=== PATIENT | male | born 1970 | race Two or more races ===

== ENCOUNTER 2022-07-29 13:13 | Inpatient (IN) | payer BC, OTHER ==
[~2022-07-29] VITALS: Ht 195.6 cm; Wt 128.1 kg
[2022-07-29 14:25] LABS: Basophils # (auto) 0 10 ^3/uL (0-0.2); Basophils % (auto) 0.2 % (0.0-2.0); Eosinophils # (auto) 0.2 10 ^3/uL (0-0.8); Eosinophils % (auto) 1.9 % (0.0-7.0); Hematocrit 38.4 % (41.0-53.0); Hemoglobin 13.2 g/dL (13.5-17.5); Lymphocytes # (auto) 1.7 10 ^3/uL (0.4-5.4); Lymphocytes % (auto) 19.1 % (10.0-50.0); Mean Corpuscular Hemoglobin 30.4 pg (28.0-32.0); Mean Corpuscular Hgb Conc. 34.2 g/dL (32.0-36.0); Mean Corpuscular Volume 88.9 fL (80.0-100.0); Monocytes # (auto) 0.3 10 ^3/uL (0-1.3); Monocytes % (auto) 3.9 % (0.0-12.0); Neutrophils # (auto) 6.6 10 ^3/uL (1.6-8.6); Neutrophils % (auto) 74.9 % (37.0-80.0); Nucleated Red Blood Cells % 0.1 %; Red Blood Cells 4.32 10^6/uL (4.5-5.90); White Blood Cell 8.8 10^3/uL (4.4-10.8)
[2022-07-29 14:40] LABS: Albumin 3.9 g/dL (3.4-5.0); Calcium 9.5 mg/dL (8.5-10.1); Potassium 4.3 mmol/L (3.5-5.1)
[2022-07-29 14:44] LABS: Bilirubin, Total 0.4 mg/dL (0.2-1.0); Total Protein 8.5 g/dL (6.4-8.2)
[2022-07-29] MEDS ORDERED: PIPERACILLIN-TAZOB 3.375GM 100 ML IV ONE (16:15)
[2022-07-29] MEDS ORDERED: SODIUM CHLORIDE 0.9% 1,000 ML IV ONE (16:15)
[2022-07-29] MEDS ORDERED: VANCOMYCIN PER PHARMACY 0 MG IV SCH (16:15)
[2022-07-29] MEDS ORDERED: VANCOMYCIN 1GM/250ML 250 ML IV SCH (18:00)
[2022-07-29] MEDS: SODIUM CHLORIDE 0.9% 1,000 ML IV SCH (22:00)
[2022-07-29] MEDS ORDERED: IBUPROFEN 800 MG TAB PO PRN (22:00)
[2022-07-29] MEDS ORDERED: MORPHINE SULFATE INJ 2 MG/ml SYRG IV PRN ×2 (22:00→23:00)
[2022-07-29] MEDS ORDERED: DOCUSATE SOD 100 MG CAP PO PRN (22:00)
[2022-07-29] MEDS ORDERED: DEXTROSE (50%) 50ML SYRG IV PRN (22:00)
[2022-07-29] MEDS: ACCU-CHEK COMFORT CURVE STRIP VI SCH (22:00)
[2022-07-29] MEDS: InsuLIN REG 1unit/0.01ml Soln (100units/ml) SC SCH (22:00)
[2022-07-29] MEDS ORDERED: ONDANSETRON HCL 4 MG/2 ML VIAL IV PRN (22:00)
[2022-07-29] MEDS ORDERED: NITROGLYCERIN 0.4 MG SL TAB SL PRN (23:00)
[2022-07-30] MEDS: CEFEPIME 1GM/ 50ML 50 ML IV SCH (05:24)
[2022-07-30 05:30] LABS: Basophils # (auto) 0 10 ^3/uL (0-0.2); Basophils % (auto) 0.1 % (0.0-2.0); Eosinophils # (auto) 0.1 10 ^3/uL (0-0.8); Eosinophils % (auto) 0.9 % (0.0-7.0); Hematocrit 36.7 % (41.0-53.0); Hemoglobin 12.5 g/dL (13.5-17.5); Lymphocytes # (auto) 1.3 10 ^3/uL (0.4-5.4); Lymphocytes % (auto) 14.8 % (10.0-50.0); Mean Corpuscular Hemoglobin 30.7 pg (28.0-32.0); Mean Corpuscular Volume 90.2 fL (80.0-100.0); Monocytes # (auto) 0.3 10 ^3/uL (0-1.3); Monocytes % (auto) 3.8 % (0.0-12.0); Neutrophils # (auto) 7.2 10 ^3/uL (1.6-8.6); Neutrophils % (auto) 80.4 % (37.0-80.0); Red Blood Cells 4.06 10^6/uL (4.5-5.90)
[2022-07-30] MEDS: ACCU-CHEK COMFORT CURVE STRIP VI SCH ×4 (05:36→17:00)
[2022-07-30 05:44] LABS: Albumin 3.6 g/dL (3.4-5.0); Calcium 8.7 mg/dL (8.5-10.1)
[2022-07-30] MEDS: INSULIN LANTUS (GLARGINE) 1 /0.01ml (100units/ml) SC SCH (05:44)
[2022-07-30 05:48] LABS: BUN/Creatinine Ratio 18.6 (10.0-20.0); Bilirubin, Total 0.4 mg/dL (0.2-1.0); Total Protein 7.9 g/dL (6.4-8.2)
[2022-07-30] MEDS: InsuLIN REG 1unit/0.01ml Soln (100units/ml) SC SCH ×3 (07:00→19:56)
[2022-07-30] MEDS: HEPARIN SODIUM (PORCINE) 5000 UNITS/ML 1ML VIAL SC SCH ×2 (10:00→16:59)
[2022-07-30] MEDS: VANCOMYCIN 1GM/250ML 250 ML IV SCH (19:32)
[2022-07-30] MEDS: SODIUM CHLORIDE 0.9% 1,000 ML IV SCH (19:32)
[2022-07-30 23:50] VITALS: BP 132/72
[2022-07-31 05:00] VITALS: BP 120/66
[2022-07-31] MEDS: diphenhdrAMINE HCL 25 MG CAP PO PRN ×3 (05:19→21:52)
[2022-07-31] MEDS: InsuLIN REG 1unit/0.01ml Soln (100units/ml) SC SCH ×5 (05:39→22:00)
[2022-07-31] MEDS: ACCU-CHEK COMFORT CURVE STRIP VI SCH ×4 (07:00→21:53)
[2022-07-31] MEDS: INSULIN LANTUS (GLARGINE) 1 /0.01ml (100units/ml) SC SCH ×2 (07:00→22:02)
[2022-07-31] MEDS: SODIUM CHLORIDE 0.9% 1,000 ML IV SCH (07:20)
[2022-07-31] MEDS: VANCOMYCIN 1GM/250ML 250 ML IV SCH ×2 (07:23→17:45)
[2022-07-31] MEDS: HEPARIN SODIUM (PORCINE) 5000 UNITS/ML 1ML VIAL SC SCH ×3 (07:23→21:59)
[2022-07-31] MEDS: CEFEPIME 1GM/ 50ML 50 ML IV SCH ×3 (07:24→21:52)
[2022-07-31 09:00] VITALS: BP 129/57
[2022-07-31 12:53] VITALS: BP 123/63
[2022-07-31] MEDS ORDERED: INSULIN LANTUS (GLARGINE) 1 /0.01ml (100units/ml) SC ONE (15:00)
[2022-07-31 17:00] VITALS: BP 125/77
[2022-07-31 22:00] VITALS: BP 131/75
[2022-08-01 05:00] VITALS: BP 121/69
[2022-08-01] MEDS: diphenhdrAMINE HCL 25 MG CAP PO PRN ×4 (05:51→23:26)
[2022-08-01] MEDS: ACCU-CHEK COMFORT CURVE STRIP VI SCH ×4 (05:52→21:57)
[2022-08-01] MEDS: CEFEPIME 1GM/ 50ML 50 ML IV SCH ×3 (05:52→22:07)
[2022-08-01] MEDS: VANCOMYCIN 1GM/250ML 250 ML IV SCH ×3 (06:54→22:08)
[2022-08-01] MEDS: InsuLIN REG 1unit/0.01ml Soln (100units/ml) SC SCH ×4 (06:56→22:06)
[2022-08-01] MEDS: INSULIN LANTUS (GLARGINE) 1 /0.01ml (100units/ml) SC SCH ×2 (06:56→22:07)
[2022-08-01 08:40] VITALS: BP 138/65
[2022-08-01] MEDS: guaiFENesin-DM 100/10mg/5ml SYR PO PRN (09:11)
[2022-08-01] MEDS: HEPARIN SODIUM (PORCINE) 5000 UNITS/ML 1ML VIAL SC SCH ×2 (09:14→22:07)
[2022-08-01] MEDS ORDERED: INSULIN LANTUS (GLARGINE) 1 /0.01ml (100units/ml) SC ONE (12:00)
[2022-08-01 13:01] VITALS: BP 129/69
[2022-08-01 17:00] VITALS: BP 128/70
[2022-08-01 22:00] VITALS: BP 121/74
[2022-08-02] MEDS: diphenhdrAMINE HCL 25 MG CAP PO PRN ×4 (04:46→22:35)
[2022-08-02 05:00] VITALS: BP 135/69
[2022-08-02 05:54] LABS: Hematocrit 34.5 % (41.0-53.0); Mean Corpuscular Hemoglobin 31.1 pg (28.0-32.0); Mean Corpuscular Hgb Conc. 34.9 g/dL (32.0-36.0); Red Blood Cells 3.87 10^6/uL (4.5-5.90); Red Cell Distribution Width 14.5 % (11.8-14.3); White Blood Cell 8.5 10^3/uL (4.4-10.8)
[2022-08-02 06:03] LABS: Band Neutrophils % (manual) 0; Basophils % (manual) 0 (0.0-2.0); Blast Cells 0; Metamyelocytes % 0; Promyelocytes % 0; Reactive Lymphocytes 0
[2022-08-02 06:06] LABS: BUN/Creatinine Ratio 17.2 (10.0-20.0); Calcium 8.3 mg/dL (8.5-10.1); Potassium 3.4 mmol/L (3.5-5.1)
[2022-08-02] MEDS: ACCU-CHEK COMFORT CURVE STRIP VI SCH ×4 (06:06→22:05)
[2022-08-02] MEDS: CEFEPIME 1GM/ 50ML 50 ML IV SCH ×3 (06:06→22:13)
[2022-08-02] MEDS: VANCOMYCIN 1GM/250ML 250 ML IV SCH ×3 (06:06→22:13)
[2022-08-02] MEDS: InsuLIN REG 1unit/0.01ml Soln (100units/ml) SC SCH ×4 (06:41→22:08)
[2022-08-02] MEDS: INSULIN LANTUS (GLARGINE) 1 /0.01ml (100units/ml) SC SCH ×2 (06:42→22:14)
[2022-08-02] MEDS ORDERED: POTASSIUM CHL 20 Meq TABLET PO ONE (07:45)
[2022-08-02 09:00] VITALS: BP 130/70
[2022-08-02] MEDS: HEPARIN SODIUM (PORCINE) 5000 UNITS/ML 1ML VIAL SC SCH ×2 (09:02→22:14)
[2022-08-02 10:51] LABS: Eosinophils % (manual) 1 (0-7); Lymphocytes % (manual) 22 (10.0-50.0); Monocytes % (manual) 4 (0-12); Myelocytes % 1
[2022-08-02 13:00] VITALS: BP 130/73
[2022-08-02] MEDS ORDERED: GADOTERATE MEG 10 MMOL/20ml INJ (0.5MMOL/ml) IV ONE (15:26)
[2022-08-02 17:10] VITALS: BP 116/68
[2022-08-02 22:00] VITALS: BP 129/74
[2022-08-02] MEDS: DAKINS QUARTER STR 0.125% (NaHypochlorite) 473 ML TOPICAL SOL TOP SCH (22:15)
[2022-08-03] MEDS: VANCOMYCIN 1GM/250ML 250 ML IV SCH ×4 (04:09→22:11)
[2022-08-03 05:15] VITALS: BP 120/69
[2022-08-03] MEDS: CEFEPIME 1GM/ 50ML 50 ML IV SCH ×3 (06:13→22:11)
[2022-08-03] MEDS: ACCU-CHEK COMFORT CURVE STRIP VI SCH ×4 (06:13→22:00)
[2022-08-03] MEDS: InsuLIN REG 1unit/0.01ml Soln (100units/ml) SC SCH ×4 (06:13→23:56)
[2022-08-03] MEDS: INSULIN LANTUS (GLARGINE) 1 /0.01ml (100units/ml) SC SCH ×2 (06:56→23:56)
[2022-08-03] MEDS: diphenhdrAMINE HCL 25 MG CAP PO PRN ×3 (08:20→23:57)
[2022-08-03] MEDS: HEPARIN SODIUM (PORCINE) 5000 UNITS/ML 1ML VIAL SC SCH ×2 (08:22→22:11)
[2022-08-03 09:00] VITALS: BP 119/71
[2022-08-03] MEDS: DAKINS QUARTER STR 0.125% (NaHypochlorite) 473 ML TOPICAL SOL TOP SCH ×2 (10:12→22:00)
[2022-08-03] MEDS ORDERED: diphenhdrAMINE HCL 50 MG/1 ML VL IV ONE (10:45)
[2022-08-03 13:00] VITALS: BP 119/71
[2022-08-03 17:00] VITALS: BP 116/69
[2022-08-03] MEDS: guaiFENesin-DM 100/10mg/5ml SYR PO PRN (17:39)
[2022-08-03 22:00] VITALS: BP 132/74
[2022-08-03] MEDS: HYDROCORTISONE 2.5% TOPICAL CREAM 30GM TUBE TOP SCH (23:58)
[2022-08-04] MEDS: VANCOMYCIN 1GM/250ML 250 ML IV SCH ×4 (04:08→22:16)
[2022-08-04 05:20] VITALS: BP 124/71
[2022-08-04] MEDS: INSULIN LANTUS (GLARGINE) 1 /0.01ml (100units/ml) SC SCH ×2 (06:32→22:18)
[2022-08-04] MEDS: ACCU-CHEK COMFORT CURVE STRIP VI SCH ×4 (06:32→22:19)
[2022-08-04] MEDS: CEFEPIME 1GM/ 50ML 50 ML IV SCH ×3 (06:32→22:45)
[2022-08-04] MEDS: InsuLIN REG 1unit/0.01ml Soln (100units/ml) SC SCH ×4 (06:32→22:18)
[2022-08-04 07:28] LABS: INR 1.03 (0.9-1.15); Partial Thromboplastin Time 28.1 sec (24.6-33.4)
[2022-08-04 09:00] VITALS: BP 124/64
[2022-08-04] MEDS ORDERED: diphenhdrAMINE HCL 50 MG/1 ML VL IV ONE (09:45)
[2022-08-04] MEDS: HEPARIN SODIUM (PORCINE) 5000 UNITS/ML 1ML VIAL SC SCH ×2 (10:00→22:17)
[2022-08-04] MEDS: DAKINS QUARTER STR 0.125% (NaHypochlorite) 473 ML TOPICAL SOL TOP SCH ×2 (10:00→22:00)
[2022-08-04] MEDS: HYDROCORTISONE 2.5% TOPICAL CREAM 30GM TUBE TOP SCH ×2 (10:16→22:00)
[2022-08-04] MEDS ORDERED: LIDOCAINE 1% HCL (LOCAL ANESTH.) INJ 20ML MDV ONE (12:44)
[2022-08-04 13:00] VITALS: BP 119/61
[2022-08-04 17:28] VITALS: BP 111/58
[2022-08-04] MEDS: diphenhdrAMINE HCL 25 MG CAP PO PRN (17:29)
[2022-08-04] MEDS: HYDROcodone-ACET 5/325MG TAB PO PRN (17:29)
[2022-08-04 22:00] VITALS: BP 129/73
[2022-08-05] MEDS: HYDROcodone-ACET 5/325MG TAB PO PRN (02:35)
[2022-08-05] MEDS: diphenhdrAMINE HCL 25 MG CAP PO PRN ×4 (02:35→16:56)
[2022-08-05 05:09] VITALS: BP 113/60
[2022-08-05] MEDS: VANCOMYCIN 1GM/250ML 250 ML IV SCH ×3 (05:45→22:16)
[2022-08-05 05:52] LABS: Anion Gap 6 (5-15); BUN/Creatinine Ratio 20.6 (10.0-20.0); Blood Urea Nitrogen 20 mg/dL (7-18); Calcium 8.4 mg/dL (8.5-10.1); Carbon Dioxide 25 mmol/L (21-32); Chloride 113 mmol/L (98-107); GFR African American 105 mL/min; GFR Non-African American 87 mL/min; Glucose 95 mg/dL (74-106); Potassium 4.3 mmol/L (3.5-5.1); Sodium 144 mmol/L (136-145)
[2022-08-05] MEDS: INSULIN LANTUS (GLARGINE) 1 /0.01ml (100units/ml) SC SCH ×3 (05:59→22:14)
[2022-08-05] MEDS: ACCU-CHEK COMFORT CURVE STRIP VI SCH ×4 (05:59→22:13)
[2022-08-05] MEDS: InsuLIN REG 1unit/0.01ml Soln (100units/ml) SC SCH ×4 (06:00→22:15)
[2022-08-05 06:09] LABS: Hematocrit 37.7 % (41.0-53.0); Hemoglobin 12.6 g/dL (13.5-17.5); Mean Corpuscular Hemoglobin 30.8 pg (28.0-32.0); Mean Corpuscular Hgb Conc. 33.5 g/dL (32.0-36.0); Mean Corpuscular Volume 91.7 fL (80.0-100.0); Red Blood Cells 4.11 10^6/uL (4.5-5.90); Red Cell Distribution Width 14.5 % (11.8-14.3); White Blood Cell 7.3 10^3/uL (4.4-10.8)
[2022-08-05 06:16] LABS: Basophils % (manual) 0 (0.0-2.0); Blast Cells 0; Eosinophils % (manual) 0 (0-7); Metamyelocytes % 0; Promyelocytes % 0; Reactive Lymphocytes 0
[2022-08-05] MEDS: CEFEPIME 1GM/ 50ML 50 ML IV SCH ×2 (06:46→13:38)
[2022-08-05 09:00] VITALS: BP 125/56
[2022-08-05] MEDS: HYDROCORTISONE 2.5% TOPICAL CREAM 30GM TUBE TOP SCH ×2 (10:03→22:13)
[2022-08-05] MEDS: HEPARIN SODIUM (PORCINE) 5000 UNITS/ML 1ML VIAL SC SCH ×2 (10:08→22:14)
[2022-08-05 10:16] LABS: Band Neutrophils % (manual) 2; Lymphocytes % (manual) 13 (10.0-50.0); Monocytes % (manual) 5 (0-12); Myelocytes % 1
[2022-08-05] MEDS ORDERED: methylPREDNISolone SOD SUCC 125 MG/2 ML VL IV ONE (10:30)
[2022-08-05] MEDS: DAKINS QUARTER STR 0.125% (NaHypochlorite) 473 ML TOPICAL SOL TOP SCH ×2 (12:17→22:13)
[2022-08-05 12:37] VITALS: BP 114/60
[2022-08-05 16:43] VITALS: BP 123/60
[2022-08-05] MEDS: PIPERACILLIN-TAZO 4.5GM 100 ML IV SCH ×2 (17:47→23:59)
[2022-08-05 22:00] VITALS: BP 132/71
[2022-08-05] MEDS: methylPREDNISolone SOD SUCC 40 MG/ML VL IV SCH (22:13)
[2022-08-06 05:00] VITALS: BP 124/65
[2022-08-06] MEDS: VANCOMYCIN 1GM/250ML 250 ML IV SCH ×3 (05:00→22:47)
[2022-08-06] MEDS: diphenhdrAMINE HCL 25 MG CAP PO PRN ×3 (05:06→20:57)
[2022-08-06] MEDS: InsuLIN REG 1unit/0.01ml Soln (100units/ml) SC SCH ×4 (06:11→21:52)
[2022-08-06] MEDS: INSULIN LANTUS (GLARGINE) 1 /0.01ml (100units/ml) SC SCH ×2 (06:11→21:53)
[2022-08-06] MEDS: ACCU-CHEK COMFORT CURVE STRIP VI SCH ×4 (06:34→22:47)
[2022-08-06] MEDS: PIPERACILLIN-TAZO 4.5GM 100 ML IV SCH ×3 (06:34→17:32)
[2022-08-06 06:55] LABS: Calcium 8.5 mg/dL (8.5-10.1); Potassium 4.4 mmol/L (3.5-5.1)
[2022-08-06 06:57] LABS: BUN/Creatinine Ratio 19.6 (10.0-20.0)
[2022-08-06 08:02] VITALS: BP 127/67
[2022-08-06] MEDS: HYDROCORTISONE 2.5% TOPICAL CREAM 30GM TUBE TOP SCH ×2 (09:40→22:47)
[2022-08-06] MEDS: methylPREDNISolone SOD SUCC 40 MG/ML VL IV SCH ×2 (09:40→21:53)
[2022-08-06] MEDS: HEPARIN SODIUM (PORCINE) 5000 UNITS/ML 1ML VIAL SC SCH ×2 (09:46→21:52)
[2022-08-06] MEDS: DAKINS QUARTER STR 0.125% (NaHypochlorite) 473 ML TOPICAL SOL TOP SCH ×2 (10:00→22:47)
[2022-08-06 13:00] VITALS: BP 109/55
[2022-08-06 16:24] VITALS: BP 117/64
[2022-08-06 22:00] VITALS: BP 114/63
[2022-08-07] MEDS: PIPERACILLIN-TAZO 4.5GM 100 ML IV SCH ×4 (00:15→17:10)
[2022-08-07 05:00] VITALS: BP 111/56
[2022-08-07] MEDS: VANCOMYCIN 1GM/250ML 250 ML IV SCH ×2 (06:00→17:10)
[2022-08-07] MEDS: ACCU-CHEK COMFORT CURVE STRIP VI SCH ×4 (06:00→22:20)
[2022-08-07] MEDS: INSULIN LANTUS (GLARGINE) 1 /0.01ml (100units/ml) SC SCH ×2 (06:30→22:22)
[2022-08-07] MEDS: InsuLIN REG 1unit/0.01ml Soln (100units/ml) SC SCH ×4 (06:30→22:21)
[2022-08-07] MEDS: diphenhdrAMINE HCL 25 MG CAP PO PRN ×2 (06:33→17:10)
[2022-08-07 08:59] VITALS: BP 117/71
[2022-08-07] MEDS: DAKINS QUARTER STR 0.125% (NaHypochlorite) 473 ML TOPICAL SOL TOP SCH ×2 (09:36→22:07)
[2022-08-07] MEDS: methylPREDNISolone SOD SUCC 40 MG/ML VL IV SCH (09:39)
[2022-08-07] MEDS: HEPARIN SODIUM (PORCINE) 5000 UNITS/ML 1ML VIAL SC SCH ×2 (09:40→22:20)
[2022-08-07] MEDS: HYDROCORTISONE 2.5% TOPICAL CREAM 30GM TUBE TOP SCH ×2 (10:00→22:25)
[2022-08-07 13:00] VITALS: BP 124/69
[2022-08-07] MEDS ORDERED: LIDOCAINE 1% (LOCAL ANESTH.) PF 5ml SDV ID ONE (15:15)
[2022-08-07 16:41] VITALS: BP 136/81
[2022-08-07 20:00] VITALS: BP 150/81
[2022-08-07 22:00] VITALS: BP 150/81
[2022-08-07] MEDS: SODIUM CHLOR 0.9% PF (SALINE LOCK) 10ML VIAL/SYR IV SCH (22:08)
[2022-08-08] MEDS: PIPERACILLIN-TAZO 4.5GM 100 ML IV SCH ×2 (00:07→05:09)
[2022-08-08] MEDS: VANCOMYCIN 1GM/250ML 250 ML IV SCH ×2 (00:10→08:08)
[2022-08-08 05:00] VITALS: BP 123/77
[2022-08-08] MEDS: diphenhdrAMINE HCL 25 MG CAP PO PRN (05:11)
[2022-08-08] MEDS: ACCU-CHEK COMFORT CURVE STRIP VI SCH ×4 (06:20→22:15)
[2022-08-08] MEDS: InsuLIN REG 1unit/0.01ml Soln (100units/ml) SC SCH ×4 (06:21→22:16)
[2022-08-08] MEDS: INSULIN LANTUS (GLARGINE) 1 /0.01ml (100units/ml) SC SCH ×2 (06:21→22:16)
[2022-08-08 06:56] LABS: Hematocrit 37.9 % (41.0-53.0); Hemoglobin 12.9 g/dL (13.5-17.5); Mean Corpuscular Hemoglobin 30.5 pg (28.0-32.0); Mean Corpuscular Volume 89.5 fL (80.0-100.0); Red Blood Cells 4.23 10^6/uL (4.5-5.90); Red Cell Distribution Width 14.4 % (11.8-14.3); White Blood Cell 8.6 10^3/uL (4.4-10.8)
[2022-08-08 07:07] LABS: Band Neutrophils % (manual) 0; Basophils % (manual) 0 (0.0-2.0); Blast Cells 0; Eosinophils % (manual) 0 (0-7); Metamyelocytes % 0; Myelocytes % 0; Promyelocytes % 0; Reactive Lymphocytes 0
[2022-08-08 07:13] LABS: Calcium 8.7 mg/dL (8.5-10.1); Potassium 3.8 mmol/L (3.5-5.1)
[2022-08-08 07:15] LABS: BUN/Creatinine Ratio 20.5 (10.0-20.0)
[2022-08-08 08:12] LABS: Lymphocytes % (manual) 32 (10.0-50.0); Monocytes % (manual) 12 (0-12)
[2022-08-08 08:41] VITALS: BP 128/60
[2022-08-08] MEDS: HYDROCORTISONE 2.5% TOPICAL CREAM 30GM TUBE TOP SCH ×2 (09:50→22:15)
[2022-08-08] MEDS: DAKINS QUARTER STR 0.125% (NaHypochlorite) 473 ML TOPICAL SOL TOP SCH ×2 (09:51→22:17)
[2022-08-08] MEDS ORDERED: predniSONE 20 MG TAB PO SCH (10:00)
[2022-08-08] MEDS: HEPARIN SODIUM (PORCINE) 5000 UNITS/ML 1ML VIAL SC SCH ×2 (10:05→22:17)
[2022-08-08] MEDS: SODIUM CHLOR 0.9% PF (SALINE LOCK) 10ML VIAL/SYR IV SCH ×2 (10:05→22:17)
[2022-08-08 12:32] VITALS: BP 131/71
[2022-08-08] MEDS: cefTRIAXone 1GM/50ML D5W 50 ML IV SCH (13:10)
[2022-08-08 16:36] VITALS: BP 127/74
[2022-08-08] MEDS: DAPTOmycin 750 MG in SODIUM CHL 0.9% 50 ML IV SCH (16:45)
[2022-08-08 22:00] VITALS: BP 116/61
[2022-08-09 05:00] VITALS: BP 129/62
[2022-08-09] MEDS: ACCU-CHEK COMFORT CURVE STRIP VI SCH ×4 (06:19→23:39)
[2022-08-09] MEDS: INSULIN LANTUS (GLARGINE) 1 /0.01ml (100units/ml) SC SCH ×2 (06:19→23:41)
[2022-08-09] MEDS: InsuLIN REG 1unit/0.01ml Soln (100units/ml) SC SCH ×4 (06:20→23:41)
[2022-08-09 09:31] VITALS: BP 101/56
[2022-08-09] MEDS: predniSONE 20 MG TAB PO SCH (10:05)
[2022-08-09] MEDS: cefTRIAXone 1GM/50ML D5W 50 ML IV SCH (10:05)
[2022-08-09] MEDS: HEPARIN SODIUM (PORCINE) 5000 UNITS/ML 1ML VIAL SC SCH ×2 (10:12→23:42)
[2022-08-09] MEDS: SODIUM CHLOR 0.9% PF (SALINE LOCK) 10ML VIAL/SYR IV SCH ×2 (10:13→23:38)
[2022-08-09] MEDS: HYDROCORTISONE 2.5% TOPICAL CREAM 30GM TUBE TOP SCH ×2 (10:30→22:00)
[2022-08-09] MEDS: DAKINS QUARTER STR 0.125% (NaHypochlorite) 473 ML TOPICAL SOL TOP SCH ×2 (10:30→22:00)
[2022-08-09 13:00] VITALS: BP 115/71
[2022-08-09] MEDS: DAPTOmycin 750 MG in SODIUM CHL 0.9% 50 ML IV SCH (14:52)
[2022-08-09] MEDS ORDERED: PRED10TA PO (16:23)
[2022-08-09] MEDS ORDERED: INSLANTI SC (16:23)
[2022-08-09] MEDS ORDERED: LISI2.5T47 PO (16:23)
[2022-08-09 16:41] VITALS: BP 128/70
[2022-08-09 17:53] VITALS: BP 115/71
[2022-08-09 21:48] VITALS: BP 122/69
[2022-08-10 05:02] VITALS: BP 121/66
[2022-08-10] MEDS: INSULIN LANTUS (GLARGINE) 1 /0.01ml (100units/ml) SC SCH ×2 (06:00→22:45)
[2022-08-10] MEDS: InsuLIN REG 1unit/0.01ml Soln (100units/ml) SC SCH ×4 (06:00→22:43)
[2022-08-10] MEDS: ACCU-CHEK COMFORT CURVE STRIP VI SCH ×4 (06:00→22:42)
[2022-08-10 08:00] VITALS: BP 116/75
[2022-08-10] MEDS: cefTRIAXone 1GM/50ML D5W 50 ML IV SCH (09:39)
[2022-08-10] MEDS: predniSONE 20 MG TAB PO SCH (09:39)
[2022-08-10] MEDS: HEPARIN SODIUM (PORCINE) 5000 UNITS/ML 1ML VIAL SC SCH ×2 (09:55→22:45)
[2022-08-10] MEDS: HYDROCORTISONE 2.5% TOPICAL CREAM 30GM TUBE TOP SCH (10:00)
[2022-08-10] MEDS: DAKINS QUARTER STR 0.125% (NaHypochlorite) 473 ML TOPICAL SOL TOP SCH (10:30)
[2022-08-10] MEDS: SODIUM CHLOR 0.9% PF (SALINE LOCK) 10ML VIAL/SYR IV SCH ×2 (10:30→20:55)
[2022-08-10 12:00] VITALS: BP 136/76
[2022-08-10] MEDS ORDERED: levoFLOXacin 500 MG TAB PO SCH (12:41)
[2022-08-10] MEDS ORDERED: SULFAMETHOX W/TRIMETH(800/160MG) DS TAB PO SCH ×2 (12:41→22:00)
[2022-08-10 16:00] VITALS: BP 104/63
[2022-08-10] MEDS: DAPTOmycin 750 MG in SODIUM CHL 0.9% 50 ML IV SCH (20:54)
[2022-08-10 22:00] VITALS: BP 112/61
[2022-08-11] MEDS: DAKINS QUARTER STR 0.125% (NaHypochlorite) 473 ML TOPICAL SOL TOP SCH ×3 (01:06→21:04)
[2022-08-11] MEDS: HYDROCORTISONE 2.5% TOPICAL CREAM 30GM TUBE TOP SCH ×3 (01:06→21:04)
[2022-08-11 05:00] VITALS: BP 106/63
[2022-08-11 05:50] LABS: Basophils # (auto) 0 10 ^3/uL (0-0.2); Eosinophils # (auto) 0.2 10 ^3/uL (0-0.8); Hemoglobin 13.3 g/dL (13.5-17.5); Lymphocytes # (auto) 2.7 10 ^3/uL (0.4-5.4); Monocytes # (auto) 0.7 10 ^3/uL (0-1.3); Red Cell Distribution Width 14.6 % (11.8-14.3)
[2022-08-11 06:01] LABS: Albumin 3.4 g/dL (3.4-5.0); Calcium 8.9 mg/dL (8.5-10.1); Potassium 4.3 mmol/L (3.5-5.1)
[2022-08-11 06:07] LABS: BUN/Creatinine Ratio 19.8 (10.0-20.0); Bilirubin, Total 0.2 mg/dL (0.2-1.0); Total Protein 6.6 g/dL (6.4-8.2)
[2022-08-11 06:24] LABS: Eosinophils % (auto) 2.2 % (0.0-7.0); Hematocrit 39.1 % (41.0-53.0); Lymphocytes % (auto) 30.1 % (10.0-50.0); Mean Corpuscular Hemoglobin 30.7 pg (28.0-32.0); Mean Corpuscular Volume 90.2 fL (80.0-100.0); Monocytes % (auto) 7.8 % (0.0-12.0); Neutrophils # (auto) 5.4 10 ^3/uL (1.6-8.6); Neutrophils % (auto) 59.9 % (37.0-80.0); Nucleated Red Blood Cells % 0.2 %; Red Blood Cells 4.34 10^6/uL (4.5-5.90); White Blood Cell 8.9 10^3/uL (4.4-10.8)
[2022-08-11] MEDS: ACCU-CHEK COMFORT CURVE STRIP VI SCH ×4 (06:32→21:04)
[2022-08-11] MEDS: INSULIN LANTUS (GLARGINE) 1 /0.01ml (100units/ml) SC SCH ×2 (06:32→21:23)
[2022-08-11] MEDS: InsuLIN REG 1unit/0.01ml Soln (100units/ml) SC SCH ×4 (06:33→21:22)
[2022-08-11 09:00] VITALS: BP 111/52
[2022-08-11] MEDS: SODIUM CHLOR 0.9% PF (SALINE LOCK) 10ML VIAL/SYR IV SCH ×2 (10:00→21:25)
[2022-08-11] MEDS ORDERED: ENOXAPARIN SOD 40 MG/0.4 ML SYRINGE SC SCH (10:00)
[2022-08-11] MEDS: cefTRIAXone 1GM/50ML D5W 50 ML IV SCH (10:00)
[2022-08-11] MEDS: predniSONE 20 MG TAB PO SCH (10:05)
[2022-08-11] MEDS: PANTOPRAZOLE 40 MG TAB PO SCH (10:05)
[2022-08-11] MEDS ORDERED: HEPARIN SODIUM (PORCINE) 5000 UNITS/ML 1ML VIAL SC ONE (11:00)
[2022-08-11 13:00] VITALS: BP 119/65
[2022-08-11 17:00] VITALS: BP 102/55
[2022-08-11] MEDS: DAPTOmycin 750 MG in SODIUM CHL 0.9% 50 ML IV SCH (20:56)
[2022-08-11] MEDS: HEPARIN SODIUM (PORCINE) 5000 UNITS/ML 1ML VIAL SC SCH (21:16)
[2022-08-11 22:00] VITALS: BP 114/60
[2022-08-12 05:00] VITALS: BP 111/63
[2022-08-12 06:23] LABS: Basophils # (auto) 0 10 ^3/uL (0-0.2); Basophils % (auto) 0.1 % (0.0-2.0); Eosinophils # (auto) 0.1 10 ^3/uL (0-0.8); Eosinophils % (auto) 1.6 % (0.0-7.0); Hematocrit 39.3 % (41.0-53.0); Hemoglobin 13.5 g/dL (13.5-17.5); Lymphocytes # (auto) 2.7 10 ^3/uL (0.4-5.4); Lymphocytes % (auto) 34.1 % (10.0-50.0); Mean Corpuscular Hemoglobin 30.8 pg (28.0-32.0); Mean Corpuscular Hgb Conc. 34.3 g/dL (32.0-36.0); Mean Corpuscular Volume 89.6 fL (80.0-100.0); Monocytes # (auto) 0.7 10 ^3/uL (0-1.3); Monocytes % (auto) 8.6 % (0.0-12.0); Neutrophils # (auto) 4.4 10 ^3/uL (1.6-8.6); Neutrophils % (auto) 55.6 % (37.0-80.0); Nucleated Red Blood Cells % 0.1 %; Red Blood Cells 4.38 10^6/uL (4.5-5.90); Red Cell Distribution Width 14.9 % (11.8-14.3); White Blood Cell 7.9 10^3/uL (4.4-10.8)
[2022-08-12] MEDS: ACCU-CHEK COMFORT CURVE STRIP VI SCH ×4 (06:56→21:51)
[2022-08-12] MEDS: InsuLIN REG 1unit/0.01ml Soln (100units/ml) SC SCH ×4 (06:56→21:54)
[2022-08-12] MEDS: INSULIN LANTUS (GLARGINE) 1 /0.01ml (100units/ml) SC SCH ×2 (06:56→22:21)
[2022-08-12 07:14] LABS: Potassium 3.8 mmol/L (3.5-5.1)
[2022-08-12 07:21] LABS: BUN/Creatinine Ratio 23.3 (10.0-20.0); Calcium 8.7 mg/dL (8.5-10.1)
[2022-08-12 08:10] VITALS: BP 114/63
[2022-08-12] MEDS: cefTRIAXone 1GM/50ML D5W 50 ML IV SCH (09:24)
[2022-08-12] MEDS: predniSONE 20 MG TAB PO SCH (09:25)
[2022-08-12] MEDS: HEPARIN SODIUM (PORCINE) 5000 UNITS/ML 1ML VIAL SC SCH ×2 (09:38→21:51)
[2022-08-12] MEDS: SODIUM CHLOR 0.9% PF (SALINE LOCK) 10ML VIAL/SYR IV SCH ×2 (09:46→21:58)
[2022-08-12] MEDS: HYDROCORTISONE 2.5% TOPICAL CREAM 30GM TUBE TOP SCH ×2 (10:00→22:01)
[2022-08-12] MEDS: DAKINS QUARTER STR 0.125% (NaHypochlorite) 473 ML TOPICAL SOL TOP SCH ×2 (10:00→22:02)
[2022-08-12] MEDS: PANTOPRAZOLE 40 MG TAB PO SCH (10:10)
[2022-08-12 12:20] VITALS: BP 104/50
[2022-08-12 17:00] VITALS: BP 109/58
[2022-08-12 19:17] LABS: Urine Bacteria NONE SEEN /hpf (None Seen); Urine Blood Negative /uL (Negative); Urine WBC <1 /hpf (0 - 3)
[2022-08-12] MEDS: DAPTOmycin 750 MG in SODIUM CHL 0.9% 50 ML IV SCH (20:53)
[2022-08-12 23:15] VITALS: BP 105/58
[2022-08-13 05:33] VITALS: BP 124/69
[2022-08-13] MEDS: InsuLIN REG 1unit/0.01ml Soln (100units/ml) SC SCH ×4 (06:20→23:20)
[2022-08-13] MEDS: ACCU-CHEK COMFORT CURVE STRIP VI SCH ×4 (06:20→23:11)
[2022-08-13] MEDS: INSULIN LANTUS (GLARGINE) 1 /0.01ml (100units/ml) SC SCH ×2 (06:26→23:25)
[2022-08-13] MEDS: cefTRIAXone 1GM/50ML D5W 50 ML IV SCH (08:52)
[2022-08-13] MEDS: PANTOPRAZOLE 40 MG TAB PO SCH (08:53)
[2022-08-13] MEDS: SODIUM CHLOR 0.9% PF (SALINE LOCK) 10ML VIAL/SYR IV SCH ×2 (08:53→23:19)
[2022-08-13 09:00] VITALS: BP 103/48
[2022-08-13] MEDS: HYDROCORTISONE 2.5% TOPICAL CREAM 30GM TUBE TOP SCH ×2 (09:02→23:11)
[2022-08-13] MEDS: HEPARIN SODIUM (PORCINE) 5000 UNITS/ML 1ML VIAL SC SCH ×2 (09:02→23:20)
[2022-08-13] MEDS: DAKINS QUARTER STR 0.125% (NaHypochlorite) 473 ML TOPICAL SOL TOP SCH ×2 (09:02→23:19)
[2022-08-13 13:00] VITALS: BP 108/64
[2022-08-13 17:00] VITALS: BP 101/65
[2022-08-13 22:00] VITALS: BP 108/68
[2022-08-13] MEDS: DAPTOmycin 750 MG in SODIUM CHL 0.9% 50 ML IV SCH (23:11)
[2022-08-14 05:00] VITALS: BP 127/64
[2022-08-14 06:23] LABS: Basophils # (auto) 0 10 ^3/uL (0-0.2); Basophils % (auto) 0.1 % (0.0-2.0); Eosinophils # (auto) 0.1 10 ^3/uL (0-0.8); Eosinophils % (auto) 1.5 % (0.0-7.0); Hematocrit 38.5 % (41.0-53.0); Hemoglobin 13.3 g/dL (13.5-17.5); Lymphocytes # (auto) 2.3 10 ^3/uL (0.4-5.4); Lymphocytes % (auto) 25.5 % (10.0-50.0); Mean Corpuscular Hemoglobin 31.3 pg (28.0-32.0); Mean Corpuscular Hgb Conc. 34.6 g/dL (32.0-36.0); Mean Corpuscular Volume 90.3 fL (80.0-100.0); Monocytes # (auto) 0.8 10 ^3/uL (0-1.3); Monocytes % (auto) 9.1 % (0.0-12.0); Neutrophils # (auto) 5.7 10 ^3/uL (1.6-8.6); Neutrophils % (auto) 63.8 % (37.0-80.0); Nucleated Red Blood Cells % 0.1 %; Red Blood Cells 4.26 10^6/uL (4.5-5.90); Red Cell Distribution Width 14.5 % (11.8-14.3); White Blood Cell 8.9 10^3/uL (4.4-10.8)
[2022-08-14] MEDS: ACCU-CHEK COMFORT CURVE STRIP VI SCH ×4 (06:41→22:33)
[2022-08-14] MEDS: InsuLIN REG 1unit/0.01ml Soln (100units/ml) SC SCH ×4 (06:43→22:41)
[2022-08-14] MEDS: INSULIN LANTUS (GLARGINE) 1 /0.01ml (100units/ml) SC SCH ×2 (06:44→22:41)
[2022-08-14 06:53] LABS: Albumin 3.4 g/dL (3.4-5.0); Calcium 8.7 mg/dL (8.5-10.1); Potassium 4.2 mmol/L (3.5-5.1)
[2022-08-14 06:58] LABS: BUN/Creatinine Ratio 21.4 (10.0-20.0); Bilirubin, Total 0.3 mg/dL (0.2-1.0); Total Protein 6.9 g/dL (6.4-8.2)
[2022-08-14] MEDS: DAKINS QUARTER STR 0.125% (NaHypochlorite) 473 ML TOPICAL SOL TOP SCH ×2 (08:45→22:40)
[2022-08-14] MEDS: HYDROCORTISONE 2.5% TOPICAL CREAM 30GM TUBE TOP SCH ×2 (08:45→22:32)
[2022-08-14] MEDS: cefTRIAXone 1GM/50ML D5W 50 ML IV SCH (08:45)
[2022-08-14] MEDS: SODIUM CHLOR 0.9% PF (SALINE LOCK) 10ML VIAL/SYR IV SCH ×2 (08:46→22:00)
[2022-08-14] MEDS: PANTOPRAZOLE 40 MG TAB PO SCH (08:49)
[2022-08-14 09:00] VITALS: BP 127/64
[2022-08-14] MEDS: HEPARIN SODIUM (PORCINE) 5000 UNITS/ML 1ML VIAL SC SCH ×2 (09:13→22:40)
[2022-08-14 12:44] VITALS: BP 113/67
[2022-08-14 17:00] VITALS: BP 115/68
[2022-08-14 22:00] VITALS: BP 122/60
[2022-08-14] MEDS: DAPTOmycin 750 MG in SODIUM CHL 0.9% 50 ML IV SCH (22:30)
[2022-08-15 05:00] VITALS: BP 119/63
[2022-08-15] MEDS: INSULIN LANTUS (GLARGINE) 1 /0.01ml (100units/ml) SC SCH ×2 (07:00→21:37)
[2022-08-15] MEDS: InsuLIN REG 1unit/0.01ml Soln (100units/ml) SC SCH ×4 (07:00→21:36)
[2022-08-15] MEDS: ACCU-CHEK COMFORT CURVE STRIP VI SCH ×4 (07:11→21:31)
[2022-08-15] MEDS: PANTOPRAZOLE 40 MG TAB PO SCH (08:59)
[2022-08-15] MEDS: cefTRIAXone 1GM/50ML D5W 50 ML IV SCH (08:59)
[2022-08-15 09:00] VITALS: BP 117/67
[2022-08-15] MEDS: SODIUM CHLOR 0.9% PF (SALINE LOCK) 10ML VIAL/SYR IV SCH ×2 (09:00→21:30)
[2022-08-15] MEDS: DAKINS QUARTER STR 0.125% (NaHypochlorite) 473 ML TOPICAL SOL TOP SCH ×2 (09:00→21:31)
[2022-08-15] MEDS: HYDROCORTISONE 2.5% TOPICAL CREAM 30GM TUBE TOP SCH ×2 (09:00→21:31)
[2022-08-15] MEDS: HEPARIN SODIUM (PORCINE) 5000 UNITS/ML 1ML VIAL SC SCH ×2 (09:16→21:36)
[2022-08-15 13:00] VITALS: BP 111/60
[2022-08-15 17:00] VITALS: BP 113/67
[2022-08-15] MEDS: DAPTOmycin 750 MG in SODIUM CHL 0.9% 50 ML IV SCH (21:30)
[2022-08-15 22:00] VITALS: BP 112/69
[2022-08-16 05:00] VITALS: BP 128/62
[2022-08-16 06:21] LABS: Basophils # (auto) 0 10 ^3/uL (0-0.2); Basophils % (auto) 0.1 % (0.0-2.0); Eosinophils # (auto) 0.1 10 ^3/uL (0-0.8); Eosinophils % (auto) 2.1 % (0.0-7.0); Hematocrit 40.3 % (41.0-53.0); Hemoglobin 13.6 g/dL (13.5-17.5); Lymphocytes # (auto) 2.1 10 ^3/uL (0.4-5.4); Lymphocytes % (auto) 33.8 % (10.0-50.0); Mean Corpuscular Hemoglobin 30.3 pg (28.0-32.0); Mean Corpuscular Hgb Conc. 33.8 g/dL (32.0-36.0); Mean Corpuscular Volume 89.7 fL (80.0-100.0); Monocytes # (auto) 0.6 10 ^3/uL (0-1.3); Monocytes % (auto) 10.1 % (0.0-12.0); Neutrophils # (auto) 3.3 10 ^3/uL (1.6-8.6); Neutrophils % (auto) 53.9 % (37.0-80.0); Red Blood Cells 4.49 10^6/uL (4.5-5.90); Red Cell Distribution Width 14.9 % (11.8-14.3); White Blood Cell 6.1 10^3/uL (4.4-10.8)
[2022-08-16 06:32] LABS: Potassium 3.5 mmol/L (3.5-5.1)
[2022-08-16 06:38] LABS: BUN/Creatinine Ratio 25.8 (10.0-20.0); Calcium 8.7 mg/dL (8.5-10.1)
[2022-08-16] MEDS: InsuLIN REG 1unit/0.01ml Soln (100units/ml) SC SCH ×4 (06:42→21:08)
[2022-08-16] MEDS: ACCU-CHEK COMFORT CURVE STRIP VI SCH ×4 (06:42→21:09)
[2022-08-16] MEDS: INSULIN LANTUS (GLARGINE) 1 /0.01ml (100units/ml) SC SCH ×2 (06:43→21:08)
[2022-08-16] MEDS: HYDROCORTISONE 2.5% TOPICAL CREAM 30GM TUBE TOP SCH ×2 (08:58→21:08)
[2022-08-16] MEDS: cefTRIAXone 1GM/50ML D5W 50 ML IV SCH (08:58)
[2022-08-16] MEDS: SODIUM CHLOR 0.9% PF (SALINE LOCK) 10ML VIAL/SYR IV SCH ×2 (08:58→21:23)
[2022-08-16] MEDS: DAKINS QUARTER STR 0.125% (NaHypochlorite) 473 ML TOPICAL SOL TOP SCH ×2 (08:58→21:09)
[2022-08-16] MEDS: PANTOPRAZOLE 40 MG TAB PO SCH (08:58)
[2022-08-16] MEDS: HEPARIN SODIUM (PORCINE) 5000 UNITS/ML 1ML VIAL SC SCH ×2 (08:58→21:07)
[2022-08-16 09:12] VITALS: BP 132/74
[2022-08-16 13:00] VITALS: BP 121/74
[2022-08-16] MEDS ORDERED: POTASSIUM CHL 20 Meq TABLET PO ONE (14:45)
[2022-08-16 16:57] VITALS: BP 134/73
[2022-08-16] MEDS: DAPTOmycin 750 MG in SODIUM CHL 0.9% 50 ML IV SCH (21:07)
[2022-08-16 22:00] VITALS: BP 117/65
[2022-08-17 05:00] VITALS: BP 137/78
[2022-08-17 05:16] VITALS: BP 137/78
[2022-08-17] MEDS: INSULIN LANTUS (GLARGINE) 1 /0.01ml (100units/ml) SC SCH ×2 (06:16→21:46)
[2022-08-17] MEDS: InsuLIN REG 1unit/0.01ml Soln (100units/ml) SC SCH ×4 (06:16→21:43)
[2022-08-17] MEDS: ACCU-CHEK COMFORT CURVE STRIP VI SCH ×4 (06:16→21:44)
[2022-08-17 09:00] VITALS: BP 117/73
[2022-08-17] MEDS: PANTOPRAZOLE 40 MG TAB PO SCH (09:40)
[2022-08-17] MEDS: cefTRIAXone 1GM/50ML D5W 50 ML IV SCH (09:41)
[2022-08-17] MEDS: HEPARIN SODIUM (PORCINE) 5000 UNITS/ML 1ML VIAL SC SCH ×2 (09:48→21:32)
[2022-08-17] MEDS: HYDROCORTISONE 2.5% TOPICAL CREAM 30GM TUBE TOP SCH ×2 (10:00→21:44)
[2022-08-17] MEDS: DAKINS QUARTER STR 0.125% (NaHypochlorite) 473 ML TOPICAL SOL TOP SCH ×2 (10:00→21:44)
[2022-08-17] MEDS: SODIUM CHLOR 0.9% PF (SALINE LOCK) 10ML VIAL/SYR IV SCH ×2 (10:00→21:46)
[2022-08-17 13:00] VITALS: BP 104/60
[2022-08-17 17:00] VITALS: BP 114/67
[2022-08-17] MEDS: DAPTOmycin 750 MG in SODIUM CHL 0.9% 50 ML IV SCH (19:46)
[2022-08-18 05:00] VITALS: BP 117/77
[2022-08-18] MEDS: INSULIN LANTUS (GLARGINE) 1 /0.01ml (100units/ml) SC SCH (06:00)
[2022-08-18] MEDS: InsuLIN REG 1unit/0.01ml Soln (100units/ml) SC SCH (06:01)
[2022-08-18] MEDS: ACCU-CHEK COMFORT CURVE STRIP VI SCH (06:01)
[2022-08-18] MEDS: cefTRIAXone 1GM/50ML D5W 50 ML IV SCH (08:21)
[2022-08-18 08:30] VITALS: BP 122/61
[2022-08-18] MEDS: PANTOPRAZOLE 40 MG TAB PO SCH (09:56)
[2022-08-18] MEDS: SODIUM CHLOR 0.9% PF (SALINE LOCK) 10ML VIAL/SYR IV SCH (10:00)
[2022-08-18] MEDS: HYDROCORTISONE 2.5% TOPICAL CREAM 30GM TUBE TOP SCH (10:00)
[2022-08-18] MEDS: DAKINS QUARTER STR 0.125% (NaHypochlorite) 473 ML TOPICAL SOL TOP SCH (10:00)
[2022-08-18] MEDS: HEPARIN SODIUM (PORCINE) 5000 UNITS/ML 1ML VIAL SC SCH (10:01)
[2022-08-18] MEDS ORDERED: DOXY1CAP57 PO (12:39)
[2022-08-18] MEDS ORDERED: CEFD300C2 PO (12:40)
== END 2022-08-18 11:10 | disposition left against medical advice (07) | DRG 602 ==
LOC: ER 13:13 → OVERFLOW 23:02 → WEST WING 07-30 23:41
PROVIDERS: ADMIT Nurse Practitioner Family; ATTEND Internal Medicine Geriatric Medicine
PROC: 0Y9N0ZZ Drainage of Left Foot, Open Approach (ICD-10-PCS; principal; 2022-08-05)
PROC: 05HB33Z Insertion of Infusion Device into Right Basilic Vein, Percutaneous Approach (ICD-10-PCS; 2022-08-07)
PROC: B54MZZA Ultrasonography of Right Upper Extremity Veins, Guidance (ICD-10-PCS; 2022-08-07)
DX: L03.116 Cellulitis of left lower limb (principal); N17.0 Acute kidney failure with tubular necrosis; L02.612 Cutaneous abscess of left foot; M86.672 Other chronic osteomyelitis, left ankle and foot; M00.872 Arthritis due to other bacteria, left ankle and foot; E11.621 Type 2 diabetes mellitus with foot ulcer; L97.529 Non-pressure chronic ulcer of other part of left foot with unspecified severity; E11.69 Type 2 diabetes mellitus with other specified complication; E11.628 Type 2 diabetes mellitus with other skin complications; E11.65 Type 2 diabetes mellitus with hyperglycemia; A49.01 Methicillin susceptible Staphylococcus aureus infection, unspecified site; Z53.29 Procedure and treatment not carried out because of patient's decision for other reasons; E78.5 Hyperlipidemia, unspecified; K21.9 Gastro-esophageal reflux disease without esophagitis; Z87.891 Personal history of nicotine dependence; Z75.1 Person awaiting admission to adequate facility elsewhere; Z79.4 Long term (current) use of insulin
CPT/HCPCS: 36415; 36569; 71046; 73700; 73720; 80048; 80053; 80061; 80202; 81001; 82043; 82306; 82550; 82565; 82962; 83036; 83605; 84443; 84484; 85007; 85025; 85027; 85610; 85652; 85730; 86141; 86850; 86900; 86901; 87040; 87075; 87077; 87186; 87205; 96365; G0378; J0696; J1815; J2001; J2543